=== PATIENT | female | born 1955 | race Caucasian/White ===

== ENCOUNTER → 2019-11-20 16:44 | Outpatient (BNVA) | payer MEDICARE, MEDICAID, SELFPAY | PROVIDERS: PCP Internal Medicine; Referring Provider Internal Medicine; Visit Provider Nurse Practitioner Psychiatric/Mental Health | DX: F11.20 Opioid dependence, uncomplicated (principal); F14.10 Cocaine abuse, uncomplicated | CPT/HCPCS: 99213 ==

== ENCOUNTER → 2019-11-27 16:07 | Outpatient (BNVA) | payer MEDICARE, MEDICAID, SELFPAY | PROVIDERS: Visit Provider Nurse Practitioner Psychiatric/Mental Health | DX: F11.99 Opioid use, unspecified with unspecified opioid-induced disorder (principal) | CPT/HCPCS: 80305; 99211 ==

== ENCOUNTER 2019-11-30 09:34 | Emergency (ER) | payer MEDICARE, MEDICAID, SELFPAY ==
[2019-11-30] VITALS (19 sets, daily range): BP systolic 126–157; BP diastolic 79–115; PULSE 79–93; RESP 7–20; TEMP 36.9; O2SAT 94–100; BMI 24.2
--- NOTE | 2019-11-30 09:40 | XR_ITS ---
EXAMINATION: XR HIP, RIGHT PORTABLE CLINICAL INFORMATION: Suspected right hip dislocation. COMPARISON: Radiographs of the right hip done on 04/27/2019. TECHNIQUE: Two views of the right hip. The study was done portably. FINDINGS: Postsurgical changes of total right hip arthroplasty is noted with evidence of dislocation of the right femoral component. The acetabular component appears unremarkable. Incidental note is made of total left hip arthroplasty. The visualized hardware appear intact. IMPRESSION: Status post total right hip arthroplasty showing dislocation of the right femoral component.
--- NOTE | 2019-11-30 09:45 | ED_ITS ---
HPI - Extremity Injury (Lower) General Chief Complaint: Extremity Injury, Lower Stated Complaint: hip dislocation Time Seen by Provider: 11/30/19 09:40 Source: patient and EMS Mode of arrival: ambulatory Limitations: no limitations History of Present Illness HPI Narrative: This is a 64 years old of female with history of right total hip replacement during intercourse sustained a right hip dislocation, she arrived by ambulance she EMS gave toradol IV Onset (ago): day(s) (1) Injury: Right: hip Type of Injury: hyperflexion Place: home Severity: severe Severity scale (1-10): 10 Relieving factors: nothing Exacerbating factors: nothing Context: other (during intercourse) Associated symptoms: snap/pop sensation Related Data Home Medications Medication Instructions Recorded Confirmed clonazepam 1 mg tablet mg PO 11/20/19 11/27/19 aripiprazole 2 mg tablet 2 mg PO DAILY 11/27/19 11/27/19 bupropion HCl 150 mg tablet,12 hr 150 mg PO DAILY 11/27/19 11/27/19 sustained-release duloxetine 40 mg capsule,delayed 40 mg PO DAILY 11/27/19 11/27/19 release tizanidine 2 mg capsule 2 mg PO BEDTIME 11/27/19 11/27/19 trazodone 100 mg tablet 100 mg PO BEDTIME PRN 11/27/19 11/27/19 Previous Rx's Medication Instructions Recorded buprenorphine 8 mg-naloxone 2 mg 1 film SUBLINGUAL BID #14 ea 11/27/19 sublingual film Allergies Allergy/AdvReac Type Severity Reaction Status Date / Time IVP RED DYE Allergy Intermediate ANAPHYLAXIS Uncoded 11/06/19 17:15 IVP dye Allergy Unknown Uncoded 10/09/19 00:00 Review of Systems Review of Systems: Yes all other systems are reviewed and are negative Cardiovascular: Cardiovascular: Denies lightheadedness and Denies Loss of Consciousness Neurologic: Reports system reviewed and no additional complaints, except as documented PMFSH Past Medical History Attestation statement: The following information was validated with the patient. Medical History COPD (chronic obstructive pulmonary disease) Surgical History S/P hip replacement Social History Social History Advance Directives: No Advance Directives Information Provided: Yes Physical Exam Vital Signs: Vital Signs: Vital Signs Temp Pulse Resp BP Pulse Ox 11/30/19 10:47 79 10 L 128/93 H 99 11/30/19 10:44 84 9 L 141/83 H 98 11/30/19 10:41 142/92 H 11/30/19 10:40 134/93 H 11/30/19 10:38 126/90 H 11/30/19 10:37 89 12 148/89 H 11/30/19 10:32 85 7 L 143/88 H 98 11/30/19 10:31 85 146/86 H 96 11/30/19 10:30 89 142/94 H 96 11/30/19 10:29 87 12 132/93 H 100 11/30/19 10:28 82 139/95 H 100 11/30/19 10:24 85 12 149/88 H 100 11/30/19 10:15 83 14 140/97 H 95 11/30/19 09:38 98.4 F 93 20 149/115 H 99 Body Mass Index 24.2 Const: General: alert, awake and in distress Orientation/consciousness: oriented to person, oriented to place and oriented to time HENMT: Head: Yes normal to inspection Ears: hearing grossly normal bilaterally Face and sinus: Yes normal facial exam Neck: Neck: Yes normal visual inspection, Yes full ROM, Yes no lymphadenopathy, Yes no meningeal signs and Yes trachea midline Chest: Chest palpation & inspection: normal inspection of the chest Resp: Effort & Inspection: normal respiratory effort Auscultation: clear to auscultation bilaterally Cardio: Jugular venous distension: no JVD Rate: regular rate Rhythm: regular rhythm GI: Inspection: Yes normal to inspection Palpation (GI): Soft to palpation, nontender and no guarding Skin: General skin exam: no rashes or lesions noted Lesions: no lesions Rashes: no rashes Neuro: General: oriented to person, oriented to place, oriented to time and no meningeal signs Extrem: Other: tenderness in the right hip, decreased range of motion good pulses lower extremity Course Course Course Narrative: I reexamined the patient she is now awake and alert feeling much better anticipate discharge home with follow-up with the orthopedist Procedures Orthopedic Joint Reduction right hip: Time Out Performed: Yes Side: right Joint Reduction Location: hip Analgesia: procedural sedation Technique used: traction/counter-traction and direct manipulation Post-reduction neuro exam: intact Post-reduction vascular: intact Post Reduction X-Ray Obtained: Yes Post Reduction X-Ray Results: reduced Patient Tolerated Procedure: well Procedural Sedation Indication: fracture/dislocation reduction ASA Class: II (Yesterday) Preparation: teletypesetter monitor applied, pulse oximeter, capnometry used, supplemental O2 applied, suction/airway equipment at bedside and IV secured Ketamine: IV Ketamine dose (mg): 50 IV Propofol dose (mg): 60 Patient Tolerated Procedure: well Complications: none Interventions: airway repositioned Discharge Plan Discharge Clinical Impression: Dislocated hip Qualifiers: Encounter type: initial encounter Laterality: right Qualified Code(s): S73.004A - Unspecified dislocation of right hip, initial encounter Patient Disposition: Home, Self-Care Instructions: Hip Dislocation (ED), Closed Reduction (ED) Prescriptions: No Action clonazepam 1 mg tablet PO RF: 0 trazodone 100 mg tablet 100 mg PO BEDTIME PRNRF: 0 buprenorphine-naloxone 8-2 mg film 1 film sublingual BID Qty: 14 RF: 0 tizanidine 2 mg capsule 2 mg PO BEDTIME RF: 0 duloxetine 40 mg capsule,delayed release(DR/EC) 40 mg PO DAILY RF: 0 bupropion HCl [Wellbutrin SR] 150 mg tablet sustained-release 12 hr 150 mg PO DAILY RF: 0 aripiprazole [Abilify] 2 mg tablet 2 mg PO DAILY RF: 0
[2019-11-30] MEDS: fentaNYL citrate/PF 100 MCG/2 ML VIAL 50 MCG IVPUSH (09:48)
[2019-11-30] MEDS: LORazepam 2 MG/ML VIAL 1 MG IVPUSH (09:57)
--- NOTE | 2019-11-30 10:35 | XR_ITS ---
EXAMINATION: XR HIP, RIGHT CLINICAL INFORMATION: Status post reduction of dislocation. COMPARISON: Prior radiographs acquired earlier in the day. TECHNIQUE: Pelvis, AP view Right hip, AP and crosstable lateral views FINDINGS: Interval successful reduction of the right femur. The femoral head prosthesis is now well centered within the acetabular cup. No loosening of hardware. The acetabulum cup is stabilized by a superior screw. No acute periprosthetic fracture. The visualized components of the left hip arthroplasty are intact. Lumbar spinal fusion hardware is partially included in the [id number]. IMPRESSION: Interval successful reduction of previously dislocated right hip. No periprosthetic fracture. No evidence of hardware loosening.
--- NOTE | 2019-11-30 10:43 | PC.RT ---
Stood by for conscious sedation times 20 min
[2019-11-30] MEDS: propofoL 200 MG/20 ML VIAL 60 MG IVPUSH (11:00)
== END 2019-11-30 15:06 | disposition home or self-care (01) ==
PROVIDERS: Emergency Provider Emergency Medicine; PCP Internal Medicine
DX: S73.004A Unspecified dislocation of right hip, initial encounter (principal); X50.1XXA Overexertion from prolonged static or awkward postures, initial encounter; Z96.641 Presence of right artificial hip joint; Y93.89 Activity, other specified; Y92.013 Bedroom of single-family (private) house as the place of occurrence of the external cause; Y99.9 Unspecified external cause status
CPT/HCPCS: 27252; 73502; 96374; 96375; 96376; 99152; 99284; 99285; J2060; J3010

== ENCOUNTER → 2019-12-04 13:32 | Outpatient (BNVA) | payer MEDICARE, MEDICAID, SELFPAY | PROVIDERS: Visit Provider Nurse Practitioner Psychiatric/Mental Health | DX: F11.20 Opioid dependence, uncomplicated (principal); F14.10 Cocaine abuse, uncomplicated | CPT/HCPCS: 80305; 99213 ==

== ENCOUNTER → 2019-12-11 15:53 | Outpatient (BNVA) | payer MEDICARE, MEDICAID, SELFPAY | PROVIDERS: Visit Provider Nurse Practitioner Psychiatric/Mental Health | DX: F11.99 Opioid use, unspecified with unspecified opioid-induced disorder (principal); F14.10 Cocaine abuse, uncomplicated; Z79.899 Other long term (current) drug therapy | CPT/HCPCS: 80305; 99213 ==

== ENCOUNTER → 2019-12-25 13:44 | Outpatient (BNVA) | payer MEDICARE, MEDICAID, SELFPAY | PROVIDERS: PCP Internal Medicine; Referring Provider Internal Medicine; Visit Provider Nurse Practitioner Psychiatric/Mental Health | DX: F11.99 Opioid use, unspecified with unspecified opioid-induced disorder (principal); F14.10 Cocaine abuse, uncomplicated; J44.9 Chronic obstructive pulmonary disease, unspecified; F17.200 Nicotine dependence, unspecified, uncomplicated | CPT/HCPCS: 80305; 99212 ==

== ENCOUNTER → 2020-01-29 | Outpatient (BNVA) | payer MEDICARE, MEDICAID, SELFPAY | PROVIDERS: Visit Provider Nurse Practitioner Psychiatric/Mental Health | DX: Z13.89 Encounter for screening for other disorder (principal) | CPT/HCPCS: 99211 ==

== ENCOUNTER → 2020-02-12 11:35 | Outpatient (BNVA) | payer MEDICARE, MEDICAID, SELFPAY | PROVIDERS: PCP Internal Medicine; Visit Provider Nurse Practitioner Psychiatric/Mental Health | DX: Z13.89 Encounter for screening for other disorder (principal) | CPT/HCPCS: 99212 ==

== ENCOUNTER → 2020-02-19 14:21 | Outpatient (BNVA) | payer MEDICARE, MEDICAID, SELFPAY | PROVIDERS: PCP Internal Medicine; Visit Provider Nurse Practitioner Psychiatric/Mental Health | DX: F11.99 Opioid use, unspecified with unspecified opioid-induced disorder (principal) | CPT/HCPCS: Q3014 ==

== ENCOUNTER → 2020-02-26 14:34 | Outpatient (BNVA) | payer MEDICARE, MEDICAID, SELFPAY | PROVIDERS: Visit Provider Nurse Practitioner Psychiatric/Mental Health | DX: Z76.89 Persons encountering health services in other specified circumstances (principal) ==

== ENCOUNTER → 2020-03-04 09:51 | Outpatient (BNVA) | payer MEDICARE, MEDICAID, SELFPAY | PROVIDERS: Visit Provider Nurse Practitioner Psychiatric/Mental Health | DX: Z76.89 Persons encountering health services in other specified circumstances (principal) ==

== ENCOUNTER → 2020-03-11 10:14 | Outpatient (BNVA) | payer MEDICARE, MEDICAID, SELFPAY | PROVIDERS: Visit Provider Nurse Practitioner Psychiatric/Mental Health ==

== ENCOUNTER → 2020-03-18 10:22 | Outpatient (BNVA) | payer MEDICARE, MEDICAID, SELFPAY | PROVIDERS: PCP Internal Medicine; Visit Provider Nurse Practitioner Psychiatric/Mental Health | DX: Z13.89 Encounter for screening for other disorder (principal) | CPT/HCPCS: Q3014 ==

== ENCOUNTER → 2020-04-01 10:14 | Outpatient (BNVA) | payer MEDICARE, MEDICAID, SELFPAY | PROVIDERS: PCP Internal Medicine; Visit Provider Nurse Practitioner Psychiatric/Mental Health ==

== ENCOUNTER → 2020-04-15 14:49 | Outpatient (BNVA) | payer MEDICARE, MEDICAID, SELFPAY | PROVIDERS: PCP Internal Medicine; Visit Provider Nurse Practitioner Psychiatric/Mental Health | DX: F11.20 Opioid dependence, uncomplicated (principal); F14.10 Cocaine abuse, uncomplicated | CPT/HCPCS: 80305; 99212 ==

== ENCOUNTER → 2020-04-29 13:55 | Outpatient (BNVA) | payer MEDICARE, MEDICAID, SELFPAY | PROVIDERS: PCP Internal Medicine; Visit Provider Nurse Practitioner Psychiatric/Mental Health | DX: F14.10 Cocaine abuse, uncomplicated (principal) | CPT/HCPCS: Q3014 ==

== ENCOUNTER 2020-05-04 09:07 | Emergency (ER) | payer MEDICARE, MEDICAID, SELFPAY ==
[2020-05-04] VITALS (18 sets, daily range): BP systolic 137–188; BP diastolic 87–115; PULSE 67–97; RESP 8–18; TEMP 36.7–37.1; O2SAT 95–100; BMI 23.0
--- NOTE | ~2020-05-04 | XR_ITS ---
EXAMINATION: XR HIP, RIGHT CLINICAL INFORMATION: Right hip pain. COMPARISON: Right hip 11/30/2019 TECHNIQUE: Two views of the right hip. FINDINGS: There is total right hip prosthesis with superior dislocated right prosthetic humeral head in relation to the acetabulum. Left hip prosthesis is in alignment. There is posterior spinal L5-S1 fusion with disc disease and posterior hardware. XR/XR hip RT w [id number] IMPRESSION: Bilateral hip prosthesis. There is a dislocated right hip prosthesis with prosthetic head lying superior to the right acetabulum. The left hip prosthesis and the lower spinal hardware for fusion is stable. The SI joints are normal.
--- NOTE | ~2020-05-04 | XR_ITS ---
EXAMINATION: XR HIP, RIGHT CLINICAL INFORMATION: Post reduction COMPARISON: Previous x-ray from earlier the same day TECHNIQUE: Two views of the right hip. FINDINGS: There is normal alignment of the right hip replacement. No fracture is. There are postsurgical changes to the visualized lower lumbar sacral spine. XR/XR hip RT min 2V IMPRESSION: Normal alignment of the right hip replacement. No fracture.
--- NOTE | 2020-05-04 09:41 | ED.LOWEXIN ---
HPI - Extremity Injury (Lower) General Chief Complaint: Extremity Injury, Lower <JASVIR Trotter - Last Filed: 05/04/20 16:37> Stated Complaint: R HIP PAIN S/P BENDING OVER,FELT POP,NO FALL,?DISL <JASVIR Trotter - Last Filed: 05/04/20 16:37> Time Seen by Provider: 05/04/20 09:10 <JASVIR Trotter - Last Filed: 05/04/20 16:37> Source: EMS <JASVIR Trotter Last Filed: 05/04/20 16:37> Mode of arrival: EMS <JASVIR Trotter Last Filed: 05/04/20 16:37> History of Present Illness HPI Narrative: 65-year-old female with a past medical history of fibromyalgia, COPD, bladder CA, bilateral total hip replacements presenting to the ED complaining of right hip dislocation s/p bending over and hearing pop. Admits to multiple similar instances in the past. Denies direct trauma/fall/injury, numbness, tingling, weakness, head trauma, LOC <JASVIR Trotter - Last Filed: 05/04/20 16:37> MD complaint: hip injury <JASVIR Trotter Last Filed: 05/04/20 16:37> Related Data Home Medications: Home Medications Medication Instructions Recorded Confirmed tizanidine 2 mg capsule 2 mg PO BEDTIME 11/27/19 03/18/20 trazodone 100 mg tablet 100 mg PO BEDTIME PRN 11/27/19 03/18/20 ibuprofen 800 mg tablet 800 mg PO Q8H PRN 03/04/20 03/18/20 bupropion HCl 150 mg tablet,12 hr 300 mg PO DAILY tab 03/18/20 03/18/20 sustained-release clonazepam 1 mg tablet 1 mg PO DAILY PRN tab 03/18/20 03/18/20 duloxetine 40 mg capsule,delayed 60 mg PO DAILY cap 03/18/20 03/18/20 release Previous Rx's Medication Instructions Recorded Suboxone 8 mg-2 mg sublingual film 2 film SUBLINGUAL DAILY 14 Days 04/29/20 #28 ea NS <JASVIR Trotter Last Filed: 05/04/20 16:37> Allergies/Adverse Reactions: Allergies Allergy/AdvReac Type Severity Reaction Status Date / Time IVP RED DYE Allergy Intermediate ANAPHYLAXIS Uncoded 04/01/20 10:50 IVP dye Allergy Unknown Anaphylaxis Uncoded 04/01/20 10:50 <JASVIR Trotter - Last Filed: 05/04/20 16:37> Review of Systems Review of Systems: Constitutional: No Fever, No Chills Musculoskeletal: +joint pain, No Myalgias, No Joint Swelling Skin: No Skin Lesions, No rash Neuro: No Weakness, No Numbness, No Paresthesias <JASVIR Trotter - Last Filed: 05/04/20 16:37> Yes all other systems are reviewed and are negative <JASVIR Trotter - Last Filed: 05/04/20 16:37> [facility] Past Medical History Attestation statement: The following information was validated with the patient. <JASVIR Trotter - Last Filed: 05/04/20 16:37> Medical History: Medical History (Updated 05/04/20 @ 15:26 by JASVIR Trotter) Bladder cancer COPD (chronic obstructive pulmonary disease) Fibromyalgia <JASVIR Trotter - Last Filed: 05/04/20 16:37> Surgical History: Surgical History (Updated 05/04/20 @ 09:22 by Deep Cohn) H/O repair of rotator cuff History of left hip replacement History of lumbar spinal fusion History of right ankle joint replacement History of right hip replacement <JASVIR Trotter - Last Filed: 05/04/20 16:37> Social History Social History: Social History Alcohol intake: unknown Smoking Status: Smoker, status unknown Use of substances other than those prescribed or required for medical reasons: Unknown Advance Directives: No Advance Directives Information Provided: No <JASVIR Trotter - Last Filed: 05/04/20 16:37> Physical Exam Vital Signs: Vital Signs: Last Vital Signs Temp 98.4 F 05/04/20 14:31 Pulse 69 05/04/20 14:31 Resp 12 05/04/20 14:31 BP 168/102 H 05/04/20 14:31 Pulse Ox 96 05/04/20 14:29 Body Mass Index 23.0 <JASVIR Trotter - Last Filed: 05/04/20 16:37> Vital Signs: Last Vital Signs Temp 98.4 F 05/04/20 14:31 Pulse 69 05/04/20 14:31 Resp 12 05/04/20 14:31 BP 168/102 H 05/04/20 14:31 Pulse Ox 96 05/04/20 14:29 Body Mass Index 23.0 <Eugenio Gould MD - Last Filed: 05/04/20 12:39> Const: General: cooperative, healthy appearing and comfortable <Nasra Moe PA - Last Filed: 05/04/20 16:37> Orientation/consciousness: patient oriented x3 <Nasra Moe PA - Last Filed: 05/04/20 16:37> Limitations: no limitations <Nasra Moe PA - Last Filed: 05/04/20 16:37> HENMT: Head: Yes normal to inspection <Nasra Moe PA - Last Filed: 05/04/20 16:37> Ears: hearing grossly normal bilaterally <Nasra Moe PA - Last Filed: 05/04/20 16:37> General nose exam: Normal external nose present <Nasra Moe PA - Last Filed: 05/04/20 16:37> Face and sinus: Yes normal facial exam <Nasra Moe PA - Last Filed: 05/04/20 16:37> Eyes: General: appearance normal, both eyes and all related structures <Nasra Moe PA - Last Filed: 05/04/20 16:37> EOM: EOMs intact bilaterally <Nasra Moe PA - Last Filed: 05/04/20 16:37> Neck: Neck: Yes normal visual inspection <Nasra Moe PA - Last Filed: 05/04/20 16:37> Resp: Effort & Inspection: normal respiratory effort <Nasra Moe PA - Last Filed: 05/04/20 16:37> Cardio: Rate: regular rate <Nasra Moe PA - Last Filed: 05/04/20 16:37> Peripheral pulses: dorsalis pedis present <Nasra Moe PA - Last Filed: 05/04/20 16:37> Skin: Rashes: no rashes <Nasra Moe PA - Last Filed: 05/04/20 16:37> Wounds: no wounds <JASVIR Trotter - Last Filed: 05/04/20 16:37> Neuro: General: patient oriented x3 <JASVIR Trotter - Last Filed: 05/04/20 16:37> Extrem: Other: <JASVIR Trotter - Last Filed: 05/04/20 16:37> Right lower extremity: normal capillary refill and hip/thigh Details: abnormal to inspection Details: obviously dislocated, tenderness Location: of the hip and abnormal ROM Details: held in an abnormal fashion Details: in internal rotation; no crepitus <JASVIR Trotter - Last Filed: 05/04/20 16:37> Course Course Course Narrative: -bedside reduction attempted without procedural sedation which was unsuccessful. -procedural sedation consent and right hip reduction consent obtained, paperwork signed and in patient's chart Bedside reduction successful. -patient has been continually observed/monitored throughout the day. Sleepy but easily arousable to verbal stimuli. <JASVIR Trotter - Last Filed: 05/04/20 16:37> I was at the bedside to witness the sedation and reduction <Eugenio Gould MD - Last Filed: 05/04/20 12:39> Procedures Orthopedic Joint Reduction Joint #1: Time Out Performed: Yes <JASVIR Trotter - Last Filed: 05/04/20 16:37> Side: right <JASVIR Trotter - Last Filed: 05/04/20 16:37> Joint Reduction Location: hip <JASVIR Trotter - Last Filed: 05/04/20 16:37> Local Anesthesia: other anesthetic <JASVIR Trotter - Last Filed: 05/04/20 16:37> Technique used: traction/counter-traction and direct manipulation <JASVIR Trotter - Last Filed: 05/04/20 16:37> Post-reduction neuro exam: intact <JASVIR Trotter - Last Filed: 05/04/20 16:37> Post-reduction vascular: intact <JASVIR Trotter - Last Filed: 05/04/20 16:37> Post Reduction X-Ray Obtained: Yes <JASVIR Trotter - Last Filed: 05/04/20 16:37> Post Reduction X-Ray Results: reduced <JASVIR Trotter - Last Filed: 05/04/20 16:37> Splint Applied: Yes <JASVIR Trotter - Last Filed: 05/04/20 16:37> Patient Tolerated Procedure: well <JASVIR Trotter - Last Filed: 05/04/20 16:37> Procedural Sedation Indication: fracture/dislocation reduction <JASVIR Trotter - Last Filed: 05/04/20 16:37> ASA Class: I <JASVIR Trotter - Last Filed: 05/04/20 16:37> Preparation: cardiac rehab nurse applied, pulse oximeter, capnometry used, supplemental O2 applied, suction/airway equipment at bedside and IV secured <JASVIR Trotter - Last Filed: 05/04/20 16:37> IV Propofol dose (mg): 75 <JASVIR Trotter - Last Filed: 05/04/20 16:37> Patient Tolerated Procedure: well and no complications <JASVIR Trotter - Last Filed: 05/04/20 16:37> Complications: none <JASVIR Trotter - Last Filed: 05/04/20 16:37> Interventions: oxygen applied and airway repositioned <JASVIR Trotter - Last Filed: 05/04/20 16:37> MDM - Extremity Injury (Lower) MDM Narrative Medical decision making narrative: 65-year-old female with a past medical history of fibromyalgia, COPD, bladder CA, bilateral total hip replacements presenting to the ED complaining of right hip dislocation s/p bending over and hearing pop. On exam hypertensive, physical exam as above, concern for dislocation. Low concern for fracture. Plan: Imaging <JASVIR Trotter - Last Filed: 05/04/20 16:37> Discharge Plan Discharge Clinical Impression: Hip dislocation, right <JASVIR Trotter - Last Filed: 05/04/20 16:37> Instructions: Hip Dislocation (ED) <JASVIR Trotter - Last Filed: 05/04/20 16:37> Additional Instructions: Your hip was successfully put back into place today in the emergency department Naproxen as an anti-inflammatory/pain medication, take with food In addition take Tylenol at home Avoid excessive bending, do not bend past 90?, use <JASVIR Trotter - Last Filed: 05/04/20 16:37> Prescriptions: No Action clonazepam 1 mg tablet 1 mg PO DAILY PRNRF: 0 buprenorphine-naloxone [Suboxone] 8-2 mg film 2 film sublingual DAILY 14 Days Qty: 28 RF: 0 trazodone 100 mg tablet 100 mg PO BEDTIME PRNRF: 0 tizanidine 2 mg capsule 2 mg PO BEDTIME RF: 0 duloxetine 40 mg capsule,delayed release(DR/EC) 60 mg PO DAILY RF: 0 bupropion HCl [Wellbutrin SR] 150 mg tablet sustained-release 12 hr 300 mg PO DAILY RF: 0 ibuprofen 800 mg tablet 800 mg PO Q8H PRN (Reason: pain) RF: 0 <JASVIR Trotter - Last Filed: 05/04/20 16:37> Referrals: Debbie Cooper MD [Physician] - 1 week <JASVIR Trotter - Last Filed: 05/04/20 16:37>
[2020-05-04] MEDS: LORazepam 2 MG/ML VIAL 1 MG IVPUSH (10:01)
[2020-05-04] MEDS: Ketorolac Tromethamine 15 MG/ML VIAL IVPUSH (10:01)
--- NOTE | 2020-05-04 10:54 | PC.NURSE ---
PT HAS BECOME INCREASINGLY SEDATED, AROUSABLE TO VOICE, RESP ARE SHALLOW SATS DECREASED TO 92-93%
--- NOTE | 2020-05-04 11:15 | PC.NURSE ---
Dr. Gould and Nasra TAY at bedside to attempt reduce R hip, unsuccessful. Plan for conscious sedation.
[2020-05-04] MEDS: propofoL 200 MG/20 ML VIAL 100 MG IVPUSH (12:37)
[2020-05-04] MEDS: 0.9 % Sodium Chloride 500 ML 50 ML IV (12:38)
--- NOTE | 2020-05-04 15:32 | PC.NURSE ---
Pt sleeping in bed, drowsy, but aox3 when awoke w/ verbal stimuli.
--- NOTE | 2020-05-04 17:03 | PC.NURSE ---
Pt sleeping on and off- easily arousable to verbal stimuli.
--- NOTE | 2020-05-04 18:32 | PC.NURSE ---
Pt ambulating w/ steady gait, tolerating po well.
[2020-05-04] MEDS: Acetaminophen 325 MG TABLET 650 MG PO (18:42)
== END 2020-05-04 20:31 | disposition home or self-care (01) ==
PROVIDERS: Emergency Provider Emergency Medicine
DX: T84.020A Dislocation of internal right hip prosthesis, initial encounter (principal); X58.XXXA Exposure to other specified factors, initial encounter; Z96.643 Presence of artificial hip joint, bilateral; Z85.51 Personal history of malignant neoplasm of bladder
CPT/HCPCS: 27265; 73502; 96361; 96374; 96375; 99152; 99285; J1885; J2060

== ENCOUNTER → 2020-05-13 09:27 | Outpatient (BNVA) | payer MEDICARE, MEDICAID, SELFPAY | PROVIDERS: Visit Provider Nurse Practitioner Psychiatric/Mental Health | DX: F11.99 Opioid use, unspecified with unspecified opioid-induced disorder (principal); F14.10 Cocaine abuse, uncomplicated; Z51.81 Encounter for therapeutic drug level monitoring | CPT/HCPCS: Q3014 ==

== ENCOUNTER → 2020-05-20 14:03 | Outpatient (BNVA) | payer MEDICARE, MEDICAID, SELFPAY | PROVIDERS: PCP Internal Medicine; Visit Provider Nurse Practitioner Psychiatric/Mental Health | DX: F11.99 Opioid use, unspecified with unspecified opioid-induced disorder (principal); F14.10 Cocaine abuse, uncomplicated | CPT/HCPCS: 80305; 99212 ==

== ENCOUNTER → 2020-07-22 11:04 | Outpatient (BNVA) | payer MEDICARE, MEDICAID, SELFPAY | PROVIDERS: PCP Internal Medicine; Visit Provider Nurse Practitioner Psychiatric/Mental Health | DX: F11.99 Opioid use, unspecified with unspecified opioid-induced disorder (principal); F14.10 Cocaine abuse, uncomplicated | CPT/HCPCS: Q3014 ==

== ENCOUNTER → 2020-08-12 13:03 | Outpatient (BNVA) | payer MEDICARE, MEDICAID, SELFPAY | PROVIDERS: PCP Internal Medicine; Visit Provider Nurse Practitioner Psychiatric/Mental Health | DX: Z13.89 Encounter for screening for other disorder (principal) | CPT/HCPCS: Q3014 ==